=== PATIENT | male | born 1950 | race Two or more races ===

== ENCOUNTER 2023-04-06 07:55 | Outpatient (CLI) | payer OTHER | END 2023-04-06 08:01 | disposition home or self-care (01) | LOC: NUCLEAR 07:55 | PROVIDERS: ATTEND Internal Medicine Hematology & Oncology | DX: I70.213 Atherosclerosis of native arteries of extremities with intermittent claudication, bilateral legs (principal); Z80.0 Family history of malignant neoplasm of digestive organs; D70.2 Other drug-induced agranulocytosis; I10 Essential (primary) hypertension; I48.20 Chronic atrial fibrillation, unspecified; N40.1 Benign prostatic hyperplasia with lower urinary tract symptoms; H40.9 Unspecified glaucoma; E78.2 Mixed hyperlipidemia ==

== ENCOUNTER 2023-04-07 08:03 | Outpatient (CLI) | payer OTHER | END 2023-04-07 08:04 | disposition home or self-care (01) | LOC: NUCLEAR 08:03 | PROVIDERS: ATTEND Internal Medicine Hematology & Oncology | DX: I73.9 Peripheral vascular disease, unspecified (principal); Z80.0 Family history of malignant neoplasm of digestive organs; D70.2 Other drug-induced agranulocytosis; I10 Essential (primary) hypertension; N40.1 Benign prostatic hyperplasia with lower urinary tract symptoms; H40.9 Unspecified glaucoma; E78.2 Mixed hyperlipidemia ==

== ENCOUNTER 2023-05-31 06:44 | Outpatient (CLI) | payer OTHER ==
[2023-05-31 08:34] LABS: CREATININE SERUM 0.91 mg/dL (0.70-1.30)
[2023-06-01 10:08] LABS: CA 125 7.7 U/mL (Not Estab.)
== END 2023-05-31 06:45 | disposition home or self-care (01) ==
LOC: LAB 06:44
PROVIDERS: ATTEND Internal Medicine Hematology & Oncology
DX: R97.0 Elevated carcinoembryonic antigen [CEA] (principal); Z80.0 Family history of malignant neoplasm of digestive organs; D72.818 Other decreased white blood cell count; I10 Essential (primary) hypertension; N40.1 Benign prostatic hyperplasia with lower urinary tract symptoms; H40.9 Unspecified glaucoma; E78.2 Mixed hyperlipidemia; I73.9 Peripheral vascular disease, unspecified; C25.9 Malignant neoplasm of pancreas, unspecified; R97.8 Other abnormal tumor markers; R97.1 Elevated cancer antigen 125 [CA 125]; R77.2 Abnormality of alphafetoprotein
CPT/HCPCS: 71260; Q9965

== ENCOUNTER → 2023-06-02 | Outpatient (CLI) | payer OTHER | END | disposition home or self-care (01) | LOC: TOM 07:23 | PROVIDERS: ATTEND Internal Medicine Hematology & Oncology | DX: R97.0 Elevated carcinoembryonic antigen [CEA] (principal); Z80.0 Family history of malignant neoplasm of digestive organs; D72.818 Other decreased white blood cell count; I10 Essential (primary) hypertension; N40.1 Benign prostatic hyperplasia with lower urinary tract symptoms; H40.9 Unspecified glaucoma; E78.2 Mixed hyperlipidemia; I73.9 Peripheral vascular disease, unspecified | CPT/HCPCS: 71260; Q9965 ==

== ENCOUNTER 2023-06-30 15:07 | Outpatient (CLI) | payer OTHER ==
[2023-06-30 16:10] LABS: CREATININE SERUM 1.1 mg/dL (0.70-1.30)
== END 2023-06-30 23:00 | disposition home or self-care (01) ==
LOC: LAB 15:07
PROVIDERS: ATTEND Radiology Diagnostic Radiology
DX: Z80.0 Family history of malignant neoplasm of digestive organs (principal)

== ENCOUNTER 2024-04-24 06:24 | Outpatient (CLI) | payer OTHER ==
[2024-04-24 07:11] LABS: HEMATOCRIT 41.6 % (39.0-48.0); HEMOGLOBIN 14.7 g/dL (13-16.00); MEAN CELL VOLUME 89.1 fL (80.0-100.00); MEAN CORPUSCULAR HEMOGLOBIN 31.6 pg (27.00-32.0); MEAN CORPUSCULAR HGB CONC 35.4 g/dl (32.0-36.0); PLATELET COUNT 164 K/uL (150-450); RED BLOOD COUNT 4.67 M/uL (4.00-6.00); RED CELL DISTRIBUTION WIDTH 13.9 % (11.5-14.5)
[2024-04-24 07:12] LABS: URINE APPEARANCE Clear; URINE BILIRRUBIN Negative (NEGATIVE); URINE BLOOD Negative; URINE COLOR Yellow; URINE GLUCOSE Negative (NEGATIVE); URINE KETONE Negative (NEGATIVE); URINE LEUKOCYTE Negative; URINE NITRATE Negative; URINE PROTEIN Trace (NEGATIVE); URINE UROBILINOGEN 0.2 E.U./dl
[2024-04-24 07:16] LABS: URINE BACTERIA 18.8 uL (0.0-1933); URINE EPITHELIAL CELLS 6.1 uL (0.0-38.8); URINE RBC 4.7 uL (0.0-20.8); URINE WBC 4.1 uL (0.0-23.2)
[2024-04-24 07:32] LABS: URINE CAST 1.37 uL (0.0-1.40)
[2024-04-24 07:38] LABS: INR 0.97; PROTHROMBIN TIME 10.6 SECONDS (9.0-11.5)
[2024-04-24 07:39] LABS: CALCIUM 9.3 mg/dL (8.5-10.1); CREATININE SERUM 0.9 mg/dL (0.70-1.30); GFR 82.95; POTASSIUM 3.89 mEq/L (3.5-5.1)
[2024-04-24 07:41] LABS: PROSTATIC SPECIFIC ANTIGEN 0.313 NG/ML (0.010-4.00)
== END 2024-04-24 06:40 | disposition home or self-care (01) ==
LOC: LAB 06:24
DX: N40.0 Benign prostatic hyperplasia without lower urinary tract symptoms (principal); E11.39 Type 2 diabetes mellitus with other diabetic ophthalmic complication; I15.8 Other secondary hypertension; D68.32 Hemorrhagic disorder due to extrinsic circulating anticoagulants; D69.9 Hemorrhagic condition, unspecified

== ENCOUNTER → 2024-06-26 06:49 | Outpatient (CLI) | payer OTHER ==
[2024-06-26 07:43] LABS: URINE APPEARANCE Clear; URINE BILIRRUBIN Negative (NEGATIVE); URINE BLOOD Negative; URINE COLOR Yellow; URINE GLUCOSE Negative (NEGATIVE); URINE KETONE Negative (NEGATIVE); URINE LEUKOCYTE Negative; URINE NITRATE Negative; URINE PROTEIN Negative (NEGATIVE); URINE UROBILINOGEN 0.2 E.U./dl
[2024-06-26 07:45] LABS: HEMOGLOBIN 14.7 g/dL (13-16.00); MEAN CELL VOLUME 90.2 fL (80.0-100.00); MEAN CORPUSCULAR HEMOGLOBIN 31.5 pg (27.00-32.0); MEAN CORPUSCULAR HGB CONC 34.9 g/dl (32.0-36.0); PLATELET COUNT 145 K/uL (150-450); RED BLOOD COUNT 4.66 M/uL (4.00-6.00); RED CELL DISTRIBUTION WIDTH 13.9 % (11.5-14.5)
[2024-06-26 07:49] LABS: URINE BACTERIA 19.5 uL (0.0-1933)
[2024-06-26 08:06] LABS: URINE CAST 0.73 uL (0.0-1.40); URINE WBC 1.7 uL (0.0-23.2)
[2024-06-26 08:09] LABS: INR 0.95; PARTIAL THROMBOPLASTIN TIME 24.5 SECONDS (22.0-34.0); PROTHROMBIN TIME 10.4 SECONDS (9.0-11.5)
[2024-06-26 09:10] LABS: ALBUMIN 3.9 gm/dL (3.4-5.0); BILIRUBIN TOTAL 0.65 mg/dL (0.3-1.2); CALCIUM 8.9 mg/dL (8.5-10.1); CHOL HDL RATIO 2.4 (0-5.0); CREATININE SERUM 0.85 mg/dL (0.70-1.30); GFR 88.35; GLOBULINA 3.4 G/DL (2.4-3.5); POTASSIUM 4.05 mEq/L (3.5-5.1); TOTAL PROTEIN 7.3 gm/dL (6.4-8.2)
[2024-06-26 09:14] LABS: TSH 1.61 uIU/mL (0.358-3.74)
== END | disposition home or self-care (01) ==
LOC: LAB 06:49
PROVIDERS: ATTEND Ophthalmology
DX: E11.39 Type 2 diabetes mellitus with other diabetic ophthalmic complication (principal); I15.8 Other secondary hypertension; D68.32 Hemorrhagic disorder due to extrinsic circulating anticoagulants; D69.9 Hemorrhagic condition, unspecified; I11.9 Hypertensive heart disease without heart failure; E78.2 Mixed hyperlipidemia; E03.9 Hypothyroidism, unspecified; E11.9 Type 2 diabetes mellitus without complications

== ENCOUNTER 2025-01-08 06:13 | Outpatient (CLI) | payer OTHER ==
[2025-01-08 06:49] LABS: BASO % 0.4 % (0.1-1.2); EOS # 0.06 (0.04-0.54); EOS % 1.3 % (0.7-7.0); LYMPH # 1.88 (1.18-3.74); LYMPH % 40.6 % (19.3-53.1); MEAN PLATELET VOLUME 9.20 fl (9.4-12.4); MONO # 0.35 (0.24-0.82); MONO % 7.6 % (4.7-12.5); NEUT # 2.31 (1.56-6.13); NEUT % 49.9 % (34.0-71.1); RED CELL DISTRIBUTION WIDTH 12.7 % (11.6-14.4)
[2025-01-08 06:56] LABS: URINE APPEARANCE Clear; URINE BILIRRUBIN Negative (NEGATIVE); URINE BLOOD Negative; URINE COLOR Dark Yellow; URINE GLUCOSE Negative (NEGATIVE); URINE KETONE Trace (NEGATIVE); URINE LEUKOCYTE Negative; URINE NITRATE Negative; URINE PROTEIN Trace (NEGATIVE); URINE UROBILINOGEN 1.0 E.U./dl
[2025-01-08 07:00] LABS: URINE BACTERIA 14.3 uL (0.0-1933); URINE EPITHELIAL CELLS 3.2 uL (0.0-38.8); URINE RBC 12.0 uL (0.0-20.8); URINE WBC 2.9 uL (0.0-23.2)
[2025-01-08 07:10] LABS: URINE CAST 0.73 uL (0.0-1.40)
[2025-01-08 07:33] LABS: ALT/SGPT 30.0 U/L (12-78); AST/SGOT 18.0 U/L (15-37); BILIRUBIN TOTAL 0.78 mg/dL (0.3-1.2); BUN CREA RATIO 23.0 (7.0-25.0); CHOL HDL RATIO 2.7 (0-5.0); CREATININE SERUM 0.93 mg/dL (0.70-1.30); GFR 79.64; GLOBULINA 3.3 G/DL (2.4-3.5); GLUCOSE FASTING 99.0 mg/dL (65-100); HDL 67.0 mg/dl (40-60); LDL 99.0 mg/dl (0-130); OSMOLALITY SERUM 288.0 MOSM/KG (275-295); PROSTATIC SPECIFIC ANTIGEN 0.193 NG/ML (0.010-4.00); T4 FREE 1.04 NG/ML (0.76-1.46); TSH 1.83 uIU/mL (0.358-3.74); VLDL 14.0 (0-39)
== END 2025-01-08 06:18 | disposition home or self-care (01) ==
LOC: LAB 06:13
PROVIDERS: ATTEND Internal Medicine
DX: D64.9 Anemia, unspecified (principal); I10 Essential (primary) hypertension; E11.9 Type 2 diabetes mellitus without complications; E03.9 Hypothyroidism, unspecified; E78.2 Mixed hyperlipidemia; R97.0 Elevated carcinoembryonic antigen [CEA]; N39.0 Urinary tract infection, site not specified; N40.0 Benign prostatic hyperplasia without lower urinary tract symptoms

== ENCOUNTER 2025-02-25 09:14 | Outpatient (CLI) | payer OTHER ==
[2025-02-25 10:19] LABS: BUN CREA RATIO 24.0 (7.0-25.0); CREATININE SERUM 0.95 mg/dL (0.70-1.30); GFR 77.71; GLUCOSE FASTING 100.0 mg/dL (65-100); OSMOLALITY SERUM 285.0 MOSM/KG (275-295)
== END 2025-02-25 13:26 | disposition home or self-care (01) ==
LOC: LAB 09:14
PROVIDERS: ATTEND Urology
DX: N28.1 Cyst of kidney, acquired (principal)

== ENCOUNTER 2025-05-23 06:23 | Outpatient (CLI) | payer OTHER ==
[2025-05-23 07:40] LABS: BASO % 0.5 % (0.1-1.2); EOS # 0.08 (0.04-0.54); EOS % 2.1 % (0.7-7.0); LYMPH # 1.44 (1.18-3.74); LYMPH % 38.3 % (19.3-53.1); MEAN PLATELET VOLUME 9.20 fl (9.4-12.4); MONO # 0.28 (0.24-0.82); MONO % 7.4 % (4.7-12.5); NEUT # 1.94 (1.56-6.13); NEUT % 51.7 % (34.0-71.1); RED CELL DISTRIBUTION WIDTH 12.7 % (11.6-14.4)
[2025-05-23 07:45] LABS: URINE APPEARANCE Clear; URINE BILIRRUBIN Negative (NEGATIVE); URINE BLOOD Trace; URINE COLOR Yellow; URINE GLUCOSE Negative (NEGATIVE); URINE KETONE Negative (NEGATIVE); URINE LEUKOCYTE Negative; URINE NITRATE Negative; URINE PROTEIN Negative (NEGATIVE); URINE UROBILINOGEN 0.2 E.U./dl
[2025-05-23 07:49] LABS: URINE BACTERIA 12.5 uL (0.0-1933); URINE RBC 4.8 uL (0.0-20.8); URINE WBC 2.7 uL (0.0-23.2)
[2025-05-23 08:07] LABS: URINE CAST 0.42 uL (0.0-1.40); URINE EPITHELIAL CELLS 0.7 uL (0.0-38.8)
[2025-05-23 08:35] LABS: ALT/SGPT 33.0 U/L (12-78); AST/SGOT 24.0 U/L (15-37); BILIRUBIN TOTAL 0.64 mg/dL (0.3-1.2); BUN CREA RATIO 25.0 (7.0-25.0); CHOL HDL RATIO 2.4 (0-5.0); CREATININE SERUM 0.88 mg/dL (0.70-1.30); GFR 84.89; GLOBULINA 3.4 G/DL (2.4-3.5); GLUCOSE FASTING 90.0 mg/dL (65-100); HDL 70.0 mg/dl (40-60); LDL 83.0 mg/dl (0-130); OSMOLALITY SERUM 288.0 MOSM/KG (275-295); PROSTATIC SPECIFIC ANTIGEN 0.165 NG/ML (0.010-4.00); TSH 1.62 uIU/mL (0.358-3.74); VLDL 12.0 (0-39)
== END 2025-05-23 06:28 | disposition home or self-care (01) ==
LOC: LAB 06:23
DX: I11.9 Hypertensive heart disease without heart failure (principal); E78.2 Mixed hyperlipidemia; E03.9 Hypothyroidism, unspecified; E79.0 Hyperuricemia without signs of inflammatory arthritis and tophaceous disease; N40.0 Benign prostatic hyperplasia without lower urinary tract symptoms; E11.9 Type 2 diabetes mellitus without complications